=== PATIENT | male | born 1950 | race Caucasian/White ===

== ENCOUNTER 2021-08-09 08:08 | Inpatient (IN) ==
[2021-08-09] MEDS ORDERED: Aspirin 81 MG TAB.CHEW PO ONE (08:16)
[2021-08-09 09:01] LABS: Basophils % 0.5 %; Eosinophils % 0.5 %; Hematocrit 44.6 % (37.5-50.1); Hemoglobin 14.7 g/dL (12.9-16.9); Immature Granulocytes % 0.3 % (0-4); Lymphocytes # 1.2 K/mcL (0.6-4.6); Lymphocytes % 13.1 %; Mean Corpuscular Hemoglobin 30.3 pg (28.0-33.3); Mean Platelet Volume 10.2 fL (9.4-12.4); Monocytes # 0.6 K/mcL (0.0-1.3); Monocytes % 6.3 %; Platelet Count 165 K/mcL (140-400); Red Blood Count 4.85 M/mcL (4.19-5.50); Red Cell Distribution Width 16.8 % (11.5-14.5); Segmented Neutrophils % 79.3 %; White Blood Count 8.8 K/mcL (4.3-11.1)
[2021-08-09 09:10] LABS: VBG HCO3 23 mEq/L (21-27); VBG PCO2 40 mmHg (41-51); VBG PH 7.36 pH Units (7.32-7.42); VBG PO2 54 mmHg (25-50)
[2021-08-09] MEDS ORDERED: Furosemide 40 MG/4 ML VIAL IVP ONE ×2 (09:33→18:19)
[2021-08-09 09:38] LABS: BUN/Creatinine Ratio 16 (6-26); Blood Urea Nitrogen 17 mg/dL (8-23); Calcium 8.8 mg/dL (8.6-10.3); Carbon Dioxide 23 mEq/L (23-29); Chloride 101 mEq/L (98-107); Glucose 32 mg/dL (70-105); Osmolality,Calculated 276 (280-300); Potassium 3.6 mEq/L (3.5-5.1); Sodium 134 mEq/L (136-145); Troponin I < 0.03 ng/mL (< 0.04); eGFR For African Americans > 60 (> 60); eGFR For Non-African Americans > 60 (> 60)
[2021-08-09] MEDS ORDERED: *HR* Dextrose 50 % in Water (Syg) 50 ML SYRINGE IVP ONE (09:39)
[2021-08-09] MEDS ORDERED: *HR* Dextrose 50 % in Water (Syg) 50 ML SYRINGE ONE (09:39)
[2021-08-09] MEDS ORDERED: Acetaminophen 325 MG TABLET PO PRN (10:00)
[2021-08-09] MEDS ORDERED: *HR* HYDROcodone/Acet 5/325 mg TABLET PO PRN (10:00)
[2021-08-09] MEDS ORDERED: *HR* OxyCODONE Immed Rel 5 MG TABLET PO PRN (10:00)
[2021-08-09] MEDS ORDERED: Naloxone 0.4 MG/ML INJ IVP PRN (10:00)
[2021-08-09] MEDS ORDERED: Ondansetron 4 MG/2 ML VIAL IVP PRN (10:00)
[2021-08-09] MEDS ORDERED: Dextrose 4 GM Chewable Tablets PO PRN ×2 (10:04)
[2021-08-09] MEDS ORDERED: D5% in Water 1,000 ML IVC PRN (10:04)
[2021-08-09] MEDS: *HR* Dextrose 50 % in Water (Syg) 50 ML SYRINGE IVP PRN ×4 (10:48→23:35)
[2021-08-09] MEDS ORDERED: *HR* Dextrose 50 % in Water (Syg) 50 ML SYRINGE IVP STA (12:23)
[2021-08-09] MEDS: Insulin LISPRO 300 UNITS/3 ML VIAL SUBQ SCH ×2 (12:29→18:25)
[2021-08-09 12:56] LABS: ABG Base Excess -2 mEq/L (-2 to 3); ABG HCO3 23 mEq/L (21-27); ABG Oxygen Saturation 98 % (95-98); ABG PCO2 39 mmHg (35-45); ABG PH 7.38 pH Units (7.32-7.45); ABG PO2 106 mmHg (85-104); ABG TCO2 24 mEq/L (20-26)
[2021-08-09 13:27] LABS: Bilirubin,Urine Negative (Negative); Blood,Urine Negative (Negative); Clarity,Urine Clear (Clear); Color,Urine Yellow (Yellow); Glucose,Urine (UA) Normal (Normal); Ketones,Urine Negative (Negative); Leukocyte Esterase,Urine Negative (Negative); Nitrite,Urine Negative (Negative); PH,Urine 5.5 pH Units (5.0-8.0); Protein,Urine Negative (Neg-Trace); Specific Gravity,Urine 1.025 (1.010-1.025); Urobilinogen,Urine Normal (Normal)
[2021-08-09] MEDS ORDERED: Perflutren Lipid Microsphere 1.3 ML in 0.9 % Sodium Chloride 8.7 ML IVP PRN ×2 (13:44→18:45)
[2021-08-09] MEDS ORDERED: levoFLOXacin 750 MG/150 ML 750 MG/150 ML BAG IVPB SCH (14:00)
[2021-08-09] MEDS: Albumin 25% 25gram/100mL 25 GM/100 ML IV.SOLN IVPB SCH ×3 (14:42→23:52)
[2021-08-09] MEDS ORDERED: Dextrose 50 % in Water (Vial) 50 ML in D5% in 0.2% NACL 500 ML IVC SCH (14:45)
[2021-08-09] MEDS: Ipratropium/Albuterol Neb 3 ML IH SCH ×2 (15:48→20:33)
[2021-08-09] MEDS: Furosemide 20 MG/2 ML VIAL IVP SCH (18:12)
[2021-08-09 18:15] LABS: ABG Base Excess -3 mEq/L (-2 to 3); ABG HCO3 21 mEq/L (21-27); ABG Oxygen Saturation 96 % (95-98); ABG PCO2 35 mmHg (35-45); ABG PO2 83 mmHg (85-104); ABG TCO2 23 mEq/L (20-26)
[2021-08-09] MEDS ORDERED: Furosemide 20 MG/2 ML VIAL IVP ONE (18:22)
[2021-08-09] MEDS ORDERED: *HR* Heparin 5,000 UNIT/ML VIAL IVP PRN ×2 (18:44)
[2021-08-09] MEDS ORDERED: Heparin 25,000UNIT/250ML 1/2NS 25,000 UNIT/250 ML IV.SOLN IVC SCH (18:45)
[2021-08-09] MEDS: Budesonide/Formoterol 160/4.5 1 PUFF INH IH SCH (20:33)
[2021-08-09 20:57] LABS: Mean Platelet Volume 10.5 fL (9.4-12.4)
[2021-08-09 20:59] LABS: Hematocrit 40.5 % (37.5-50.1); Hemoglobin 13.8 g/dL (12.9-16.9); Immature Platelets 6.3 % (1.1-6.1); Mean Corpuscular HGB Conc 34.1 g/dL (31.6-35.5); Mean Corpuscular Hemoglobin 30.9 pg (28.0-33.3); Mean Corpuscular Volume 90.6 fL (83.0-100.0); Red Blood Count 4.47 M/mcL (4.19-5.50); Red Cell Distribution Width 16.6 % (11.5-14.5); White Blood Count 11.6 K/mcL (4.3-11.1)
[2021-08-09] MEDS ORDERED: *HR* Dabigatran 150 MG CAPSULE PO SCH (21:00)
[2021-08-09] MEDS ORDERED: Insulin LISPRO 300 UNITS/3 ML VIAL SUBQ SCH (21:00)
[2021-08-09 21:03] LABS: Heparin anti-factor XA UFH < 0.04 IU/mL (0.30-0.70); INR 1.9; Prothrombin Time 21.1 Seconds (9.4-12.1)
[2021-08-09 21:18] LABS: Adenovirus Not Detected (Not Detect); Bordetella Pertussis Not Detected (Not Detect); Chlamydophila pneumoniae Not Detected (Not Detect); Coronavirus 229E Not Detected (Not Detect); Coronavirus HKU1 Not Detected (Not Detect); Coronavirus NL63 Not Detected (Not Detect); Coronavirus OC43 Not Detected (Not Detect); Human Metapneumovirus Not Detected (Not Detect); Human Rhinovirus/Enterovirus Not Detected (Not Detect); Influenza A Subtype 2009 H1 Not Detected (Not Detect); Influenza B Not Detected (Not Detect); Mycoplasma pneumoniae Not Detected (Not Detect); Parainfluenza Virus 1 Not Detected (Not Detect); Parainfluenza Virus 2 Not Detected (Not Detect); Parainfluenza Virus 3 Not Detected (Not Detect); Parainfluenza Virus 4 Not Detected (Not Detect); Respiratory Syncytial Virus Not Detected (Not Detect); SARS-CoV-2 Not Detected (Not Detect)
[2021-08-10] MEDS: Ipratropium/Albuterol Neb 3 ML IH SCH ×6 (00:04→20:18)
[2021-08-10] MEDS: *HR* Dextrose 50 % in Water (Syg) 50 ML SYRINGE IVP PRN ×2 (02:30→07:52)
[2021-08-10 04:55] LABS: Basophils # 0.1 K/mcL (0.0-0.2); Basophils % 0.6 %; Eosinophils # 0.1 K/mcL (0.0-0.6); Eosinophils % 0.6 %; Hematocrit 38.8 % (37.5-50.1); Hemoglobin 12.8 g/dL (12.9-16.9); Immature Granulocytes % 0.2 % (0-4); Immature Platelets 5.9 % (1.1-6.1); Lymphocytes # 1.3 K/mcL (0.6-4.6); Lymphocytes % 14.6 %; Mean Corpuscular Hemoglobin 30.4 pg (28.0-33.3); Mean Corpuscular Volume 92.2 fL (83.0-100.0); Mean Platelet Volume 10.6 fL (9.4-12.4); Monocytes # 0.7 K/mcL (0.0-1.3); Monocytes % 7.9 %; Neutrophils # 6.6 K/mcL (1.6-8.9); Platelet Count 141 K/mcL (140-400); Red Blood Count 4.21 M/mcL (4.19-5.50); Red Cell Distribution Width 16.6 % (11.5-14.5); Segmented Neutrophils % 76.1 %; White Blood Count 8.7 K/mcL (4.3-11.1)
[2021-08-10 05:13] LABS: BUN/Creatinine Ratio 16 (6-26); Blood Urea Nitrogen 14 mg/dL (8-23); Carbon Dioxide 24 mEq/L (23-29); Chloride 103 mEq/L (98-107); Glucose 66 mg/dL (70-105); Magnesium 1.6 mg/dL (1.6-2.6); Osmolality,Calculated 279 (280-300); Potassium 3.3 mEq/L (3.5-5.1); Sodium 135 mEq/L (136-145); eGFR For African Americans > 60 (> 60); eGFR For Non-African Americans > 60 (> 60)
[2021-08-10] MEDS: Budesonide/Formoterol 160/4.5 1 PUFF INH IH SCH ×2 (07:29→20:23)
[2021-08-10] MEDS: Albumin 25% 25gram/100mL 25 GM/100 ML IV.SOLN IVPB SCH (07:37)
[2021-08-10] MEDS: Aspirin Enteric Coated 81 MG Tablet PO SCH (07:37)
[2021-08-10] MEDS ORDERED: Potassium Chloride Elixir 20 MEQ/15 ML UDC PO ONE (08:10)
[2021-08-10] MEDS: Furosemide 20 MG/2 ML VIAL IVP SCH (08:17)
[2021-08-10] MEDS ORDERED: Ipratropium/Albuterol Neb 3 ML IH ONE (09:29)
[2021-08-10] MEDS ORDERED: Furosemide 20 MG/2 ML VIAL IVP ONE (09:31)
[2021-08-10] MEDS: Azithromycin 250 MG TABLET PO SCH (11:16)
[2021-08-10] MEDS: predniSONE 20 MG TABLET PO SCH (13:14)
[2021-08-10] MEDS: carvediloL 25 MG TABLET PO SCH (16:53)
[2021-08-10] MEDS: Furosemide 40 MG/4 ML VIAL IVP SCH (16:53)
[2021-08-10] MEDS ORDERED: D5% in Water 1,000 ML IVC PRN (18:10)
[2021-08-10] MEDS ORDERED: Insulin LISPRO 300 UNITS/3 ML VIAL SUBQ SCH (18:15)
[2021-08-10] MEDS: *HR* Dabigatran 150 MG CAPSULE PO SCH (20:41)
[2021-08-10] MEDS ORDERED: carvediloL 25 MG TABLET PO SCH (21:00)
[2021-08-11] MEDS: Ipratropium/Albuterol Neb 3 ML IH SCH ×7 (00:53→23:07)
[2021-08-11 05:24] LABS: Hematocrit 38.3 % (37.5-50.1); Immature Platelets 4.4 % (1.1-6.1); Mean Corpuscular HGB Conc 33.9 g/dL (31.6-35.5); Mean Corpuscular Volume 91.4 fL (83.0-100.0); Mean Platelet Volume 10.1 fL (9.4-12.4); Red Blood Count 4.19 M/mcL (4.19-5.50); Red Cell Distribution Width 16.8 % (11.5-14.5); White Blood Count 7.1 K/mcL (4.3-11.1)
[2021-08-11 05:40] LABS: BUN/Creatinine Ratio 14 (6-26); Blood Urea Nitrogen 16 mg/dL (8-23); Calcium 8.4 mg/dL (8.6-10.3); Carbon Dioxide 25 mEq/L (23-29); Chloride 101 mEq/L (98-107); Glucose 299 mg/dL (70-105); Magnesium 1.9 mg/dL (1.6-2.6); Osmolality,Calculated 288 (280-300); Phosphorous 3.5 mg/dL (2.7-4.5); Potassium 3.8 mEq/L (3.5-5.1); Sodium 133 mEq/L (136-145); eGFR For African Americans > 60 (> 60); eGFR For Non-African Americans > 60 (> 60)
[2021-08-11] MEDS: Budesonide/Formoterol 160/4.5 1 PUFF INH IH SCH ×2 (07:16→19:42)
[2021-08-11] MEDS ORDERED: lisinopriL 20 MG TABLET PO SCH (09:00)
[2021-08-11] MEDS: carvediloL 25 MG TABLET PO SCH ×2 (09:30→16:06)
[2021-08-11] MEDS: predniSONE 20 MG TABLET PO SCH (09:30)
[2021-08-11] MEDS: *HR* Dabigatran 150 MG CAPSULE PO SCH (09:30)
[2021-08-11] MEDS: Furosemide 80 MG in 0.9 % Sodium Chloride 50 ML IV SCH ×2 (09:31→20:29)
[2021-08-11] MEDS: Azithromycin 250 MG TABLET PO SCH (09:31)
[2021-08-11] MEDS: Aspirin Enteric Coated 81 MG Tablet PO SCH (09:31)
[2021-08-11] MEDS: Insulin LISPRO 300 UNITS/3 ML VIAL SUBQ SCH (17:30)
[2021-08-11] MEDS: Furosemide 40 MG/4 ML VIAL IVP SCH (19:49)
[2021-08-11] MEDS: Insulin DETEMIR 100 UNIT/ML X5UNITS SUBQ SCH (20:29)
[2021-08-12] MEDS: Ipratropium/Albuterol Neb 3 ML IH SCH ×6 (03:08→23:04)
[2021-08-12 04:42] LABS: Hematocrit 38.2 % (37.5-50.1); Hemoglobin 12.6 g/dL (12.9-16.9); Mean Corpuscular Hemoglobin 30.5 pg (28.0-33.3); Mean Corpuscular Volume 92.5 fL (83.0-100.0); Mean Platelet Volume 10.2 fL (9.4-12.4); Platelet Count 126 K/mcL (140-400); Red Blood Count 4.13 M/mcL (4.19-5.50); Red Cell Distribution Width 16.8 % (11.5-14.5)
[2021-08-12 04:45] LABS: INR 1.5; White Blood Count 10.8 K/mcL (4.3-11.1)
[2021-08-12 04:48] LABS: Activated Partial Thrombo Time 47.3 Seconds (26.0-36.0)
[2021-08-12 05:03] LABS: BUN/Creatinine Ratio 19 (6-26); Blood Urea Nitrogen 18 mg/dL (8-23); Calcium 8.4 mg/dL (8.6-10.3); Carbon Dioxide 26 mEq/L (23-29); Chloride 101 mEq/L (98-107); Glucose 190 mg/dL (70-105); Osmolality,Calculated 289 (280-300); Potassium 3.5 mEq/L (3.5-5.1); Sodium 136 mEq/L (136-145); eGFR For African Americans > 60 (> 60); eGFR For Non-African Americans > 60 (> 60)
[2021-08-12 06:09] LABS: Magnesium 1.8 mg/dL (1.6-2.6); Phosphorous 3.3 mg/dL (2.7-4.5)
[2021-08-12] MEDS: Budesonide/Formoterol 160/4.5 1 PUFF INH IH SCH ×2 (07:28→19:52)
[2021-08-12] MEDS: Metoprolol XL (24 HR) Succ 50 MG TAB.ER.24H PO SCH ×2 (08:40→20:06)
[2021-08-12] MEDS: Aspirin Enteric Coated 81 MG Tablet PO SCH (08:40)
[2021-08-12] MEDS: predniSONE 20 MG TABLET PO SCH (08:40)
[2021-08-12] MEDS: Azithromycin 250 MG TABLET PO SCH (08:40)
[2021-08-12] MEDS: Furosemide 80 MG in 0.9 % Sodium Chloride 50 ML IV SCH (08:41)
[2021-08-12] MEDS: Insulin LISPRO 300 UNITS/3 ML VIAL SUBQ SCH ×3 (08:42→17:40)
[2021-08-12] MEDS ORDERED: Furosemide 40 MG/4 ML VIAL IVP SCH (09:00)
[2021-08-12] MEDS ORDERED: *HR* Heparin 5,000 UNIT/ML VIAL IVP PRN ×2 (10:19)
[2021-08-12] MEDS ORDERED: *HR* Heparin 5,000 UNIT/ML VIAL IVP ONE (10:19)
[2021-08-12] MEDS: Heparin 25,000UNIT/250ML 1/2NS 25,000 UNIT/250 ML IV.SOLN IVC SCH (11:28)
[2021-08-12 11:38] LABS: Hematocrit 42.2 % (37.5-50.1); Immature Platelets 5.4 % (1.1-6.1); Mean Corpuscular HGB Conc 33.2 g/dL (31.6-35.5); Mean Corpuscular Hemoglobin 30.6 pg (28.0-33.3); Mean Corpuscular Volume 92.1 fL (83.0-100.0); Red Blood Count 4.58 M/mcL (4.19-5.50); White Blood Count 13.8 K/mcL (4.3-11.1)
[2021-08-12 11:52] LABS: INR 1.4; Prothrombin Time 15.1 Seconds (9.4-12.1)
[2021-08-12 11:55] LABS: Heparin anti-factor XA UFH < 0.04 IU/mL (0.30-0.70)
[2021-08-12] MEDS: Furosemide 240 MG in 0.9 % Sodium Chloride 96 ML IVC SCH (12:09)
[2021-08-12] MEDS: Insulin DETEMIR 100 UNIT/ML X5UNITS SUBQ SCH (20:07)
[2021-08-13 01:36] LABS: Basophils % 0.1 %; Hematocrit 38.4 % (37.5-50.1); Hemoglobin 12.6 g/dL (12.9-16.9); Immature Granulocytes % 0.3 % (0-4); Immature Platelets 4.8 % (1.1-6.1); Lymphocytes # 0.7 K/mcL (0.6-4.6); Lymphocytes % 7.4 %; Mean Corpuscular HGB Conc 32.8 g/dL (31.6-35.5); Mean Corpuscular Volume 91.4 fL (83.0-100.0); Mean Platelet Volume 10.2 fL (9.4-12.4); Monocytes # 0.5 K/mcL (0.0-1.3); Platelet Count 139 K/mcL (140-400); Red Cell Distribution Width 16.5 % (11.5-14.5); Segmented Neutrophils % 87.2 %; White Blood Count 9.1 K/mcL (4.3-11.1)
[2021-08-13 01:41] LABS: INR 1.4; Prothrombin Time 15.6 Seconds (9.4-12.1)
[2021-08-13 01:54] LABS: BUN/Creatinine Ratio 23 (6-26); Blood Urea Nitrogen 21 mg/dL (8-23); Calcium 8.5 mg/dL (8.6-10.3); Carbon Dioxide 32 mEq/L (23-29); Chloride 99 mEq/L (98-107); Glucose 241 mg/dL (70-105); Osmolality,Calculated 297 (280-300); Potassium 3.1 mEq/L (3.5-5.1); Sodium 138 mEq/L (136-145); eGFR For African Americans > 60 (> 60); eGFR For Non-African Americans > 60 (> 60)
[2021-08-13] MEDS: Ipratropium/Albuterol Neb 3 ML IH SCH ×5 (04:04→20:26)
[2021-08-13] MEDS: Heparin 25,000UNIT/250ML 1/2NS 25,000 UNIT/250 ML IV.SOLN IVC SCH ×2 (05:01→23:34)
[2021-08-13] MEDS: Budesonide/Formoterol 160/4.5 1 PUFF INH IH SCH ×2 (07:39→20:27)
[2021-08-13] MEDS: Furosemide 240 MG in 0.9 % Sodium Chloride 96 ML IVC SCH (08:00)
[2021-08-13] MEDS: Insulin LISPRO 300 UNITS/3 ML VIAL SUBQ SCH ×3 (09:38→18:44)
[2021-08-13] MEDS: Aspirin Enteric Coated 81 MG Tablet PO SCH (09:39)
[2021-08-13] MEDS: predniSONE 20 MG TABLET PO SCH (09:39)
[2021-08-13] MEDS: Metoprolol XL (24 HR) Succ 50 MG TAB.ER.24H PO SCH ×2 (09:39→21:05)
[2021-08-13] MEDS: Azithromycin 250 MG TABLET PO SCH (09:39)
[2021-08-13 10:05] LABS: Magnesium 1.8 mg/dL (1.6-2.6)
[2021-08-13] MEDS ORDERED: *HR* FentaNYL (PF) 100 MCG/2 ML VIAL ONE (16:29)
[2021-08-13] MEDS ORDERED: ISOVUE-370 200 ML INFUS..BTL ONE (16:30)
[2021-08-13] MEDS ORDERED: *HR* Midazolam HCl 2 MG/2 ML VIAL ONE (16:30)
[2021-08-13] MEDS ORDERED: Heparin 1,000 UNITS/500 mL 500 ML ONE (16:30)
[2021-08-13] MEDS ORDERED: *HR* Heparin 10,000 UNIT/10 ML VIAL ONE (16:30)
[2021-08-13] MEDS ORDERED: 0.9 % Sodium Chloride 2,000 ML ONE (16:30)
[2021-08-13] MEDS ORDERED: Nitroglycerin 1,000 MCG/5 ML VIAL IV ONE (16:30)
[2021-08-13] MEDS: Insulin DETEMIR 100 UNIT/ML X5UNITS SUBQ SCH (21:06)
[2021-08-14] MEDS: Ipratropium/Albuterol Neb 3 ML IH SCH ×6 (00:02→20:28)
[2021-08-14 03:59] LABS: BUN/Creatinine Ratio 22 (6-26); Blood Urea Nitrogen 22 mg/dL (8-23); Carbon Dioxide 37 mEq/L (23-29); Chloride 95 mEq/L (98-107); Glucose 185 mg/dL (70-105); Osmolality,Calculated 292 (280-300); Potassium 3.7 mEq/L (3.5-5.1); Sodium 137 mEq/L (136-145); eGFR For African Americans > 60 (> 60); eGFR For Non-African Americans > 60 (> 60)
[2021-08-14] MEDS: Budesonide/Formoterol 160/4.5 1 PUFF INH IH SCH ×2 (07:43→20:28)
[2021-08-14] MEDS: Insulin LISPRO 300 UNITS/3 ML VIAL SUBQ SCH ×3 (08:20→17:12)
[2021-08-14] MEDS: Metoprolol XL (24 HR) Succ 50 MG TAB.ER.24H PO SCH ×2 (08:20→21:30)
[2021-08-14] MEDS: Aspirin Enteric Coated 81 MG Tablet PO SCH (08:20)
[2021-08-14] MEDS: predniSONE 20 MG TABLET PO SCH (08:21)
[2021-08-14] MEDS: Furosemide 240 MG in 0.9 % Sodium Chloride 96 ML IVC SCH (08:21)
[2021-08-14] MEDS: *HR* Dabigatran 150 MG CAPSULE PO SCH (21:30)
[2021-08-14] MEDS: Insulin DETEMIR 100 UNIT/ML X5UNITS SUBQ SCH (21:30)
[2021-08-15] MEDS: Ipratropium/Albuterol Neb 3 ML IH SCH ×6 (00:09→21:00)
[2021-08-15 05:39] LABS: Basophils % 0.1 %; Eosinophils % 0.1 %; Hematocrit 41.8 % (37.5-50.1); Hemoglobin 13.9 g/dL (12.9-16.9); Immature Granulocytes % 0.5 % (0-4); Lymphocytes # 1.2 K/mcL (0.6-4.6); Mean Corpuscular HGB Conc 33.3 g/dL (31.6-35.5); Mean Corpuscular Hemoglobin 30.4 pg (28.0-33.3); Mean Corpuscular Volume 91.5 fL (83.0-100.0); Mean Platelet Volume 9.5 fL (9.4-12.4); Monocytes # 0.9 K/mcL (0.0-1.3); Monocytes % 7.9 %; Neutrophils # 8.9 K/mcL (1.6-8.9); Platelet Count 127 K/mcL (140-400); Red Blood Count 4.57 M/mcL (4.19-5.50); Segmented Neutrophils % 80.4 %; White Blood Count 11.1 K/mcL (4.3-11.1)
[2021-08-15 05:57] LABS: BUN/Creatinine Ratio 29 (6-26); Blood Urea Nitrogen 27 mg/dL (8-23); Calcium 9.1 mg/dL (8.6-10.3); Carbon Dioxide 38 mEq/L (23-29); Chloride 93 mEq/L (98-107); Glucose 186 mg/dL (70-105); Magnesium 2.1 mg/dL (1.6-2.6); Osmolality,Calculated 294 (280-300); Potassium 3.5 mEq/L (3.5-5.1); Sodium 137 mEq/L (136-145); eGFR For African Americans > 60 (> 60); eGFR For Non-African Americans > 60 (> 60)
[2021-08-15] MEDS: Budesonide/Formoterol 160/4.5 1 PUFF INH IH SCH ×2 (07:31→21:00)
[2021-08-15] MEDS: Insulin LISPRO 300 UNITS/3 ML VIAL SUBQ SCH ×3 (07:48→16:20)
[2021-08-15] MEDS: Spironolactone 12.5 MG TABLET PO SCH (07:52)
[2021-08-15] MEDS: Metoprolol XL (24 HR) Succ 50 MG TAB.ER.24H PO SCH ×2 (07:53→20:29)
[2021-08-15] MEDS: *HR* Dabigatran 150 MG CAPSULE PO SCH ×2 (07:53→20:29)
[2021-08-15] MEDS: Aspirin Enteric Coated 81 MG Tablet PO SCH (07:53)
[2021-08-15] MEDS ORDERED: Furosemide 40 MG TABLET PO SCH (09:00)
[2021-08-15] MEDS: Furosemide 40 MG/4 ML VIAL IVP SCH ×2 (12:52→20:29)
[2021-08-15] MEDS: Insulin DETEMIR 100 UNIT/ML X5UNITS SUBQ SCH (20:29)
[2021-08-16] MEDS: Ipratropium/Albuterol Neb 3 ML IH SCH ×6 (00:27→19:41)
[2021-08-16 03:50] LABS: Basophils % 0.2 %; Eosinophils # 0.1 K/mcL (0.0-0.6); Eosinophils % 1.2 %; Hematocrit 41.7 % (37.5-50.1); Hemoglobin 13.5 g/dL (12.9-16.9); Immature Granulocytes % 0.5 % (0-4); Lymphocytes # 1.4 K/mcL (0.6-4.6); Lymphocytes % 11.5 %; Mean Corpuscular HGB Conc 32.4 g/dL (31.6-35.5); Mean Corpuscular Volume 92.7 fL (83.0-100.0); Mean Platelet Volume 10.6 fL (9.4-12.4); Monocytes # 0.9 K/mcL (0.0-1.3); Monocytes % 7.1 %; Neutrophils # 9.6 K/mcL (1.6-8.9); Platelet Count 141 K/mcL (140-400); Segmented Neutrophils % 79.5 %
[2021-08-16 03:55] LABS: BUN/Creatinine Ratio 28 (6-26); Blood Urea Nitrogen 30 mg/dL (8-23); Calcium 9.1 mg/dL (8.6-10.3); Carbon Dioxide 38 mEq/L (23-29); Chloride 94 mEq/L (98-107); Glucose 131 mg/dL (70-105); Osmolality,Calculated 292 (280-300); Sodium 137 mEq/L (136-145); eGFR For African Americans > 60 (> 60); eGFR For Non-African Americans > 60 (> 60)
[2021-08-16 04:18] LABS: Estimated Average Glucose 131 mg/dl; Hemoglobin A1C 6.2 %
[2021-08-16] MEDS: Budesonide/Formoterol 160/4.5 1 PUFF INH IH SCH ×2 (08:04→19:41)
[2021-08-16] MEDS: Insulin LISPRO 300 UNITS/3 ML VIAL SUBQ SCH ×3 (08:54→17:13)
[2021-08-16] MEDS: Spironolactone 12.5 MG TABLET PO SCH (08:54)
[2021-08-16] MEDS: Metoprolol XL (24 HR) Succ 50 MG TAB.ER.24H PO SCH ×2 (08:55→20:41)
[2021-08-16] MEDS: Aspirin Enteric Coated 81 MG Tablet PO SCH (08:55)
[2021-08-16] MEDS: *HR* Dabigatran 150 MG CAPSULE PO SCH ×2 (08:55→20:34)
[2021-08-16] MEDS: Furosemide 40 MG/4 ML VIAL IVP SCH (08:56)
[2021-08-16 10:52] LABS: VBG Ionized Calcium 1.12 mmol/L (1.15-1.35)
[2021-08-16] MEDS ORDERED: Calcium Gluconate 1gm/50mL 1 GM/50 ML BAG IVPB ONE (12:00)
[2021-08-16] MEDS: Furosemide 40 MG TABLET PO SCH ×2 (13:00→17:13)
[2021-08-16] MEDS: Sacubitril/Valsartan 24/26 MG 1 TABLET PO SCH (20:33)
[2021-08-16] MEDS: Insulin DETEMIR 100 UNIT/ML X5UNITS SUBQ SCH (22:18)
[2021-08-17] MEDS: Ipratropium/Albuterol Neb 3 ML IH SCH ×6 (00:12→19:36)
[2021-08-17 05:16] LABS: Basophils % 0.2 %; Eosinophils # 0.2 K/mcL (0.0-0.6); Eosinophils % 1.5 %; Hematocrit 42.5 % (37.5-50.1); Hemoglobin 13.8 g/dL (12.9-16.9); Immature Granulocytes % 0.4 % (0-4); Immature Platelets 6.5 % (1.1-6.1); Lymphocytes # 1.5 K/mcL (0.6-4.6); Lymphocytes % 12.1 %; Mean Corpuscular HGB Conc 32.5 g/dL (31.6-35.5); Mean Corpuscular Hemoglobin 30.1 pg (28.0-33.3); Mean Corpuscular Volume 92.6 fL (83.0-100.0); Mean Platelet Volume 10.8 fL (9.4-12.4); Monocytes # 0.9 K/mcL (0.0-1.3); Monocytes % 7.4 %; Neutrophils # 9.6 K/mcL (1.6-8.9); Platelet Count 132 K/mcL (140-400); Red Blood Count 4.59 M/mcL (4.19-5.50); Red Cell Distribution Width 15.9 % (11.5-14.5); Segmented Neutrophils % 78.4 %; White Blood Count 12.3 K/mcL (4.3-11.1)
[2021-08-17 05:18] LABS: BUN/Creatinine Ratio 29 (6-26); Blood Urea Nitrogen 28 mg/dL (8-23); Calcium 8.9 mg/dL (8.6-10.3); Carbon Dioxide 32 mEq/L (23-29); Chloride 96 mEq/L (98-107); Glucose 166 mg/dL (70-105); Osmolality,Calculated 287 (280-300); Potassium 4.2 mEq/L (3.5-5.1); Sodium 134 mEq/L (136-145); eGFR For African Americans > 60 (> 60); eGFR For Non-African Americans > 60 (> 60)
[2021-08-17] MEDS: Budesonide/Formoterol 160/4.5 1 PUFF INH IH SCH ×2 (07:30→19:36)
[2021-08-17 09:04] LABS: Magnesium 2.2 mg/dL (1.6-2.6)
[2021-08-17] MEDS: Spironolactone 12.5 MG TABLET PO SCH (09:58)
[2021-08-17] MEDS: Furosemide 40 MG TABLET PO SCH (09:58)
[2021-08-17] MEDS: *HR* Dabigatran 150 MG CAPSULE PO SCH (09:58)
[2021-08-17] MEDS: Sacubitril/Valsartan 24/26 MG 1 TABLET PO SCH (09:58)
[2021-08-17] MEDS: Metoprolol XL (24 HR) Succ 50 MG TAB.ER.24H PO SCH (09:59)
[2021-08-17] MEDS: Aspirin Enteric Coated 81 MG Tablet PO SCH (09:59)
[2021-08-17] MEDS: Insulin LISPRO 300 UNITS/3 ML VIAL SUBQ SCH ×2 (10:03→12:13)
[2021-08-17 15:40] VITALS: BP 122/75; PULSE 85; TEMP 98; O2SAT 95
== END 2021-08-17 19:53 | disposition home or self-care (01) | DRG 286 ==
LOC: EMEROOARM 08:08 → 2ANU 08:08 → SUATTDRO 10:15 → 2NNU 14:52 → SUATTDRO 08-10 10:40 → 2ANU 08-16 19:33
PROVIDERS: ADMIT Pharmacist; ATTEND Internal Medicine